=== PATIENT | male | born 1970 | race African-American/Black ===

== ENCOUNTER 2019-09-09 18:45 | Emergency (ER) | payer MEDICAID ==
[~2019-09-09] VITALS: Ht 190.5 cm; Wt 90.0 kg
[2019-09-09] MEDS ORDERED: MORPHINE SULFATE 4 MG/ML CPJ (NOT FOR IM USE) IV ONE (19:15)
[2019-09-09] MEDS ORDERED: ETOMIDATE 2MG/ML 10ML VIAL IV ONE (20:15)
[2019-09-09] MEDS ORDERED: ONDANSETRON HCL 4MG/2ML INJ IV ONE (20:15)
[2019-09-09] MEDS ORDERED: KETOROLAC 30MG/ML VIAL IV ONE (20:15)
[2019-09-09 22:54] VITALS: BP 101/55
== END 2019-09-09 23:31 | disposition home or self-care (01) ==
LOC: ER 18:45
DX: S52.592A Other fractures of lower end of left radius, initial encounter for closed fracture (principal); E11.9 Type 2 diabetes mellitus without complications; W22.09XA Striking against other stationary object, initial encounter; Y93.89 Activity, other specified; Y92.89 Other specified places as the place of occurrence of the external cause
CPT/HCPCS: 25605; 73100; 73110; 96374; 96375; 99152; 99285; J1885; J2270; J2405

== ENCOUNTER 2019-09-13 11:14 | Emergency (ER) | payer MEDICAID ==
[~2019-09-13] VITALS: Ht 182.9 cm; Wt 80.0 kg
[2019-09-13] MEDS ORDERED: IBUPROFEN 600MG TABLET PO ONE (13:15)
[2019-09-13] MEDS ORDERED: ACETAMINOPHEN 325MG TABLET PO NR (15:15)
[2019-09-13 15:35] VITALS: BP 120/58
== END 2019-09-13 15:35 | disposition home or self-care (01) ==
LOC: ER 11:14
DX: S52.592A Other fractures of lower end of left radius, initial encounter for closed fracture (principal); W22.09XA Striking against other stationary object, initial encounter; Y93.89 Activity, other specified; Y92.018 Other place in single-family (private) house as the place of occurrence of the external cause
CPT/HCPCS: 29125; 73110; 73130; 99284

== ENCOUNTER 2021-01-09 04:51 | Emergency (ER) | payer MEDICAID ==
[~2021-01-09] VITALS: Ht 193 cm; Wt 87.0 kg
[2021-01-09 05:47] LABS: BASOPHILS % 0.7 % (0.0-2.0); EOSINOPHILS % 3.7 % (0.0-5.0); HEMATOCRIT. 36.2 % (42.0-52.0); HEMOGLOBIN. 12.1 g/dL (14.0-18.0); LYMPHOCYTES % 27.4 % (20.0-50.0); MEAN CORPUSCULAR HEMOGLOBIN 27.5 pg (28.0-32.0); MEAN PLATELET VOLUME 7.7 fl (7.4-10.4); MONOCYTES % 10.9 % (2.0-8.0); NEUTROPHILS % 57.3 % (40.0-76.0); PLATELET 495 x1000/uL (130-400); RED BLOOD CELL COUNT 4.42 mill/uL (4.7-6.1); RED CELL DISTRIBUTION WIDTH 14.8 % (11.6-14.6)
[2021-01-09 06:02] LABS: CHLORIDE 99 mEq/L (98-107)
[2021-01-09 06:09] LABS: ETHANOL BLOOD < 10 mg/dL
[2021-01-09 06:17] LABS: CLARITY URINE CLEAR (CLEAR); COLOR URINE YELLOW (YELLOW); KETONES URINE NEGATIVE (NEGATIVE); LEUKOCYTE ESTERASE URINE NEGATIVE (NEGATIVE); NITRITE URINE NEGATIVE (NEGATIVE); OCCULT BLOOD URINE NEGATIVE (NEGATIVE); PROTEIN URINE NEGATIVE (NEGATIVE); SPECIFIC GRAVITY URINE 1.035 (1.005-1.030); UROBILINOGEN URINE 0.2 E.U./dL (0.2-1.0)
[2021-01-09 06:27] LABS: *AMPHETAMINES SCREEN URINE NEGATIVE (NEGATIVE)
[2021-01-09 06:28] LABS: *BARBITURATES SCREEN URINE NEGATIVE (NEGATIVE); *BENZODIAZEPINES SCREEN URINE NEGATIVE (NEGATIVE); *COCAINE SCREEN URINE PRESUMTIVE POSITIVE (NEGATIVE); CANNABINOID URINE SCREEN PRESUMTIVE POSITIVE (NEGATIVE); METHADONE URINE SCREEN NEGATIVE (NEGATIVE); OPIATES URINE SCREEN NEGATIVE (NEGATIVE); PHENCYCLIDINE URINE SCREEN NEGATIVE (NEGATIVE)
[2021-01-09] MEDS ORDERED: SODIUM CHLORIDE 0.9% 1,000 ML IV ONE (06:30)
[2021-01-09] MEDS ORDERED: KETOROLAC 15MG/ML VIAL IV SCH (06:30)
[2021-01-09] MEDS ORDERED: INSULIN REGULAR (HUMULIN R) 300UNITS/3ML VIAL SUBCUT NR (07:45)
[2021-01-09] MEDS ORDERED: ONDA4TAB5 MT (08:32)
[2021-01-09] MEDS ORDERED: METF-414 MT (08:32)
[2021-01-09] MEDS ORDERED: ACET-2708 MT (08:32)
[2021-01-09 08:47] VITALS: BP 107/68
== END 2021-01-09 09:23 | disposition home or self-care (01) ==
LOC: ER 04:51
DX: K80.20 Calculus of gallbladder without cholecystitis without obstruction (principal); E11.65 Type 2 diabetes mellitus with hyperglycemia; I10 Essential (primary) hypertension; F14.10 Cocaine abuse, uncomplicated; F17.210 Nicotine dependence, cigarettes, uncomplicated; Z79.84 Long term (current) use of oral hypoglycemic drugs; Z90.49 Acquired absence of other specified parts of digestive tract
CPT/HCPCS: 36415; 76700; 80053; 80305; 80320; 81003; 82962; 83690; 84484; 85025; 93005; 96361; 96374; 99285; J1885; Z7610; G0480